=== PATIENT | female | born 1985 | race Caucasian/White ===

== ENCOUNTER 2016-09-08 16:36 | Outpatient (CLI) | payer BC ==
[2016-09-08 17:23] LABS: ALT (SGPT) 14 U/L (0-55); AST (SGOT) 12 U/L (5-34); Alkaline Phosphatase 74 U/L (40-150); Anion Gap 12 mmol/L (10-20); BUN (Urea Nitrogen) 11 mg/dL (7.0-18.7); Bilirubin, Total 0.2 mg/dL (0.2-1.2); Calc. Creatinine Clearance 0 mL/min (70-130); Calcium 9.1 mg/dL (7.8-10.44); Carbon Dioxide 24 mmol/L (22-29); Chloride 110 mmol/L (98-107); Estimated GFR-MDRD Greater than 90; Globulin 2.8 g/dL (2.4-3.5)
== END 2016-09-08 16:37 | disposition home or self-care (01) ==
LOC: BURLAB 16:36
PROVIDERS: ATTEND Family Medicine
DX: R42 Dizziness and giddiness (principal)
CPT/HCPCS: 36415; 80053; 84443

== ENCOUNTER 2024-07-28 06:03 | Emergency (ER) | payer BC ==
[2024-07-28] MEDS ORDERED: Fluorescein Opthalmic Strip ONE (06:19)
[2024-07-28] MEDS ORDERED: Tetracaine 0.5% PF 4 ML BOT ONE (06:19)
[2024-07-28] MEDS ORDERED: Ciprofloxacin 0.3% Ophth Soln 2.5 ml Bottle ONE (06:38)
== END 2024-07-28 06:47 | disposition home or self-care (01) ==
LOC: BURERS 06:03
DX: H10.9 Unspecified conjunctivitis (principal)
CPT/HCPCS: 99283

== ENCOUNTER 2025-06-05 11:45 | Outpatient (CLI) | payer BC | END 2025-06-05 11:46 | disposition home or self-care (01) | LOC: BURRAD 11:45 | PROVIDERS: ATTEND Family Medicine | DX: J18.9 Pneumonia, unspecified organism (principal) | CPT/HCPCS: 71046 ==